=== PATIENT | female | born 1995 | race Caucasian/White ===

== ENCOUNTER → 2021-03-05 | Outpatient (CLI) | payer OTHER ==
--- NOTE | 2021-03-05 16:44 | REP ---
INDICATION: R23.4 BREAST SKIN ALICEA GES/INTERMITTENT TENDERNESS. COMPARISON: NONE TECHNIQUE: ULTRASONOGRAPHIC EVALUATION OF THE RIGHT BREAST FROM THE 7-12 O'CLOCK POSITIONS INCLUSIVE DUE TO BREAST PAIN FINDINGS: There are no cystic or solid masses IMPRESSION: ACR category 2 benign ultrasonographic findings. No evidence of malignancy. <Electronically signed by Gab Gan > 03/05/21 [id number]
== END ==
LOC: M WHC 15:42
PROVIDERS: ATTEND Nurse Practitioner Family
DX: R23.4 Changes in skin texture (principal); N64.4 Mastodynia; R92.8 Other abnormal and inconclusive findings on diagnostic imaging of breast

== ENCOUNTER → 2021-05-17 | Outpatient (CLI) | payer OTHER ==
--- NOTE | 2021-05-17 16:14 | REP ---
INDICATION: RIGHT BREAST LUMP 12:00 5-8 CFN. COMPARISON: None. TECHNIQUE: Targeted right breast sonography 12 o'clock region in the area the palpable lump. FINDINGS: Sonographic scanning demonstrates heterogeneous fibroglandular background echotexture. No cyst or mass is seen by ultrasound. No suspicious shadowing or architectural distortion. IMPRESSION: Negative BI-RADS category 1 findings. Clinical follow-up is advised. This patient's estimated Tyrer-Cuzick lifetime risk assessment for breast cancer is 12.2%. <Electronically signed by José Antonio Cotto > 05/17/21 [id number]
== END ==
LOC: M WHC 14:57
PROVIDERS: ATTEND Advanced Practice Midwife
DX: N63.10 Unspecified lump in the right breast, unspecified quadrant (principal)

== ENCOUNTER → 2021-05-17 | Outpatient (REF) | payer OTHER | LOC: M SFHCWAGY 13:13 | PROVIDERS: ATTEND Advanced Practice Midwife | DX: Z12.4 Encounter for screening for malignant neoplasm of cervix (principal); R87.610 Atypical squamous cells of undetermined significance on cytologic smear of cervix (ASC-US) | CPT/HCPCS: 87624; G0123 ==

== ENCOUNTER → 2021-07-10 | Outpatient (REF) | LOC: M EMP 10:49 | PROVIDERS: ATTEND Family Medicine | DX: Z20.822 Contact with and (suspected) exposure to COVID-19 (principal) ==

== ENCOUNTER → 2021-07-26 | Outpatient (CLI) | payer OTHER ==
--- NOTE | 2021-07-26 13:49 | REPMRS ---
Patient History The patient states she had a clinical breast exam in July 2021. Patient is nulliparous. Family history of colorectal cancer in maternal grandfather, colorectal cancer in paternal grandfather. No Hormone Replacement Therapy Tomosynthesis is performed. [place] breast density is d. José Luis-Doug lifetime risk of breast cancer 15.8%. Indicated problem(s): right breast palpable abnormality for 5 months Right breast skin changes to breast. Pt is here for a right breast lump with pain and a burning sensation at 12 o'clock that she's had for 5 months as well as some skin changes at 9 o'clock area. Pt denied . Diagnostic Unilateral Mammo: Right Breast - July 26, 2021 - Exam #: [id number] CC and MLO view(s) were taken of the right breast. Technologist: Lucrecia Ramos, RT FINDINGS: The breast tissue is extremely dense which could obscure a lesion on mammography. There is a moderate amount of residual fibroglandular tissue . There is no dominant mass, areas of architectural distortion, or clustered microcalcification typical of malignancy. Assessment: BI-RADS/ACR category 1 mammogram. Negative Mammogram. Recommendation Routine screening mammogram in 1 year (for women over age 40). This mammogram was interpreted with the aid of an FDA-approved computer-aided dectection system. Electronically Signed By: Jeffrey Fay MD 07/26/21 [id number]
== END ==
LOC: M WHC 09:24
PROVIDERS: ATTEND Advanced Practice Midwife
DX: R23.4 Changes in skin texture (principal); N63.10 Unspecified lump in the right breast, unspecified quadrant
CPT/HCPCS: 77065; G0279

== ENCOUNTER → 2021-09-05 | Outpatient (REF) | LOC: M LABSMTC 10:04 | PROVIDERS: ATTEND Family Medicine | DX: Z20.822 Contact with and (suspected) exposure to COVID-19 (principal) ==

== ENCOUNTER 2021-10-29 10:45 | Outpatient (RCR) | payer OTHER | END 2021-11-04 | LOC: M PT 10:45 | PROVIDERS: ATTEND Nurse Practitioner Family | DX: M25.552 Pain in left hip (principal) ==

== ENCOUNTER 2021-11-26 10:45 | Outpatient (RCR) | payer OTHER | END 2021-12-02 | LOC: M PT 10:45 | PROVIDERS: ATTEND Nurse Practitioner Family | DX: M25.552 Pain in left hip (principal); M76.30 Iliotibial band syndrome, unspecified leg; M70.60 Trochanteric bursitis, unspecified hip ==

== ENCOUNTER 2021-12-10 10:44 | Outpatient (RCR) | payer OTHER | END 2022-01-02 | LOC: M PT 10:44 | PROVIDERS: ATTEND Nurse Practitioner Family | DX: M76.30 Iliotibial band syndrome, unspecified leg (principal); M25.552 Pain in left hip; M70.60 Trochanteric bursitis, unspecified hip ==

== ENCOUNTER → 2021-12-26 | Outpatient (CLI) | payer OTHER ==
[2021-12-26 17:42] LABS: BASO # 0.1 10^3/uL (0.0-0.2); BASO % 0.8 % (0.0-1.0); EOS # 0.2 10^3/uL (0.0-0.5); EOS % 2.5 % (0.0-3.0); HEMATOCRIT 40.6 % (36.0-47.0); HEMOGLOBIN 13.2 g/dl (12.0-15.5); LYMPH # 2.7 10^3/uL (1.5-5.0); LYMPH % 36.5 % (24.0-44.0); MEAN CORPUSCULAR HGB CONC 32.5 g/dl (32.0-36.5); MEAN CORPUSCULAR VOLUME 89.2 fl (80.0-96.0); MONO # 0.7 10^3/uL (0.0-0.8); MONO % 9.9 % (2.0-8.0); NEUTROPHILS # 3.6 10^3/uL (1.5-8.5); NEUTROPHILS % 49.9 % (36.0-66.0); PLATELET COUNT, AUTOMATED 318 10^3/uL (150-450); RED BLOOD COUNT 4.55 10^6/uL (4.00-5.40); WHITE BLOOD COUNT 7.3 10^3/uL (4.0-10.0)
[2021-12-26 18:21] LABS: ALBUMIN 4.2 GM/DL (3.2-5.2); ALT/SGPT 18 U/L (12-78); BILIRUBIN,TOTAL 0.3 MG/DL (0.2-1.0); BLOOD UREA NITROGEN 14 MG/DL (7-18); CARBON DIOXIDE LEVEL 30 MEQ/L (21-32); CHLORIDE LEVEL 105 MEQ/L (98-107); CREATININE FOR GFR 0.53 MG/DL (0.55-1.30); FREE T4 0.83 NG/DL (0.76-1.46); GLOMERULAR FILTRATION RATE > 60.0 (>60); GLUCOSE, FASTING 78 MG/DL (70-100); SODIUM LEVEL 138 MEQ/L (136-145); TOTAL PROTEIN 7.2 GM/DL (6.4-8.2)
== END ==
LOC: M PLALAB 15:31
PROVIDERS: ATTEND Student in an Organized Health Care Education/Training Program
DX: R07.89 Other chest pain (principal)
CPT/HCPCS: 36415; 80053; 84439; 84443; 85025; G0463

== ENCOUNTER → 2022-01-29 | Outpatient (CLI) | payer OTHER ==
[2022-01-29 17:41] LABS: APPEARANCE, URINE CLEAR (CLEAR); BACTERIA, URINE AUTO NEGATIVE (NEGATIVE); BILIRUBIN, URINE AUTO NEGATIVE (NEGATIVE); BLOOD, URINE BLOOD NEGATIVE (NEGATIVE); COLOR, URINE STRAW (YELLOW); GLUCOSE, URINE (UA) AUTO NEGATIVE (NEGATIVE); KETONE, URINE AUTO NEGATIVE (NEGATIVE); LEUKOCYTE ESTERASE, URINE AUTO NEGATIVE (NEGATIVE); MUCUS, URINE SMALL (NEGATIVE); NITRITE, URINE AUTO NEGATIVE (NEGATIVE); PROTEIN, URINE AUTO NEGATIVE (NEGATIVE); RBC, URINE AUTO 0 /HPF (0-3); SPECIFIC GRAVITY URINE AUTO 1.011 (1.002-1.035); SQUAMOUS EPITHELIAL CELL UR AU 2 /HPF (0-6); UROBILINOGEN, URINE AUTO 0.2 mg/dL (0.0-2.0); WBC, URINE AUTO 1 /HPF (0-3)
[2022-01-30 20:07] LABS: HSV IgM TYPES 1&2 <0.91 Ratio (0.00-0.90); HSV TYPE I IgG SPECIFIC <0.91 index (0.00-0.90); HSV TYPE II IgG SPECIFIC <0.91 index (0.00-0.90)
== END ==
LOC: M PLALAB 13:39
PROVIDERS: ATTEND Advanced Practice Midwife
DX: R10.2 Pelvic and perineal pain (principal)
CPT/HCPCS: 36415; 81001; 86694; 86695; 86696; 87086; G0463

== ENCOUNTER → 2022-02-24 | Outpatient (REF) | LOC: M LABSMTC 11:58 | PROVIDERS: ATTEND Family Medicine | DX: Z20.822 Contact with and (suspected) exposure to COVID-19 (principal) ==